=== PATIENT | female | born 1935 | race Caucasian/White ===

== ENCOUNTER 2021-06-18 08:02 | Outpatient (CLI) | payer MEDICARE, OTHER | END 2021-06-18 08:03 | disposition home or self-care (01) | LOC: CSHWCC 08:02 | PROVIDERS: ATTEND Nurse Practitioner Family | DX: L89.213 Pressure ulcer of right hip, stage 3 (principal); L89.893 Pressure ulcer of other site, stage 3; I87.2 Venous insufficiency (chronic) (peripheral); E46 Unspecified protein-calorie malnutrition; F03.90 Unspecified dementia, unspecified severity, without behavioral disturbance, psychotic disturbance, mood disturbance, and anxiety; I25.10 Atherosclerotic heart disease of native coronary artery without angina pectoris; I48.91 Unspecified atrial fibrillation; A41.9 Sepsis, unspecified organism; I95.9 Hypotension, unspecified; K21.9 Gastro-esophageal reflux disease without esophagitis; K80.43 Calculus of bile duct with acute cholecystitis with obstruction; M24.561 Contracture, right knee; M24.562 Contracture, left knee; M25.50 Pain in unspecified joint; M81.0 Age-related osteoporosis without current pathological fracture; N18.9 Chronic kidney disease, unspecified; R13.12 Dysphagia, oropharyngeal phase; R47.01 Aphasia; R62.7 Adult failure to thrive; Z74.01 Bed confinement status | CPT/HCPCS: 11043; 97605; 99204; G0463 ==

== ENCOUNTER 2021-09-08 08:25 | Outpatient (CLI) | payer MEDICARE, OTHER | END 2021-09-08 08:26 | disposition home or self-care (01) | LOC: CSHWCC 08:25 | PROVIDERS: ATTEND Nurse Practitioner Family | DX: L89.213 Pressure ulcer of right hip, stage 3 (principal); L89.894 Pressure ulcer of other site, stage 4; A41.9 Sepsis, unspecified organism; E46 Unspecified protein-calorie malnutrition; F03.90 Unspecified dementia, unspecified severity, without behavioral disturbance, psychotic disturbance, mood disturbance, and anxiety; I25.10 Atherosclerotic heart disease of native coronary artery without angina pectoris; I48.91 Unspecified atrial fibrillation; I87.2 Venous insufficiency (chronic) (peripheral); I95.9 Hypotension, unspecified; K21.9 Gastro-esophageal reflux disease without esophagitis; K80.43 Calculus of bile duct with acute cholecystitis with obstruction; M24.561 Contracture, right knee; M24.562 Contracture, left knee; M25.50 Pain in unspecified joint; M81.0 Age-related osteoporosis without current pathological fracture; N18.9 Chronic kidney disease, unspecified; R13.12 Dysphagia, oropharyngeal phase; R47.01 Aphasia; R62.7 Adult failure to thrive; Z74.01 Bed confinement status ==

== ENCOUNTER 2021-10-06 08:30 | Outpatient (CLI) | payer MEDICARE, OTHER | END 2021-10-06 08:31 | disposition home or self-care (01) | LOC: CSHWCC 08:30 | PROVIDERS: ATTEND Nurse Practitioner Family | DX: L89.894 Pressure ulcer of other site, stage 4 (principal); L89.213 Pressure ulcer of right hip, stage 3; I87.2 Venous insufficiency (chronic) (peripheral); A41.9 Sepsis, unspecified organism; R65.20 Severe sepsis without septic shock; N18.9 Chronic kidney disease, unspecified; K80.43 Calculus of bile duct with acute cholecystitis with obstruction; M81.0 Age-related osteoporosis without current pathological fracture; E46 Unspecified protein-calorie malnutrition; F03.90 Unspecified dementia, unspecified severity, without behavioral disturbance, psychotic disturbance, mood disturbance, and anxiety; I25.10 Atherosclerotic heart disease of native coronary artery without angina pectoris; I48.91 Unspecified atrial fibrillation; I95.9 Hypotension, unspecified; K21.9 Gastro-esophageal reflux disease without esophagitis; M24.561 Contracture, right knee; M24.562 Contracture, left knee; M25.50 Pain in unspecified joint; R13.12 Dysphagia, oropharyngeal phase; R47.01 Aphasia; R62.7 Adult failure to thrive; Z74.01 Bed confinement status ==

== ENCOUNTER 2021-10-20 08:38 | Outpatient (CLI) | payer MEDICARE, OTHER | END 2021-10-20 08:39 | disposition home or self-care (01) | LOC: CSHWCC 08:38 | PROVIDERS: ATTEND Nurse Practitioner Family | DX: L89.213 Pressure ulcer of right hip, stage 3 (principal); F03.90 Unspecified dementia, unspecified severity, without behavioral disturbance, psychotic disturbance, mood disturbance, and anxiety; A41.9 Sepsis, unspecified organism; E46 Unspecified protein-calorie malnutrition; I25.10 Atherosclerotic heart disease of native coronary artery without angina pectoris; I48.91 Unspecified atrial fibrillation; I87.2 Venous insufficiency (chronic) (peripheral); I95.9 Hypotension, unspecified; K21.9 Gastro-esophageal reflux disease without esophagitis; K80.43 Calculus of bile duct with acute cholecystitis with obstruction; M24.561 Contracture, right knee; M24.562 Contracture, left knee; M25.50 Pain in unspecified joint; M81.0 Age-related osteoporosis without current pathological fracture; N18.9 Chronic kidney disease, unspecified; R13.12 Dysphagia, oropharyngeal phase; R47.01 Aphasia; R62.7 Adult failure to thrive; Z74.01 Bed confinement status ==

== ENCOUNTER 2021-11-10 08:31 | Outpatient (CLI) | payer MEDICARE, OTHER | END 2021-11-10 08:32 | disposition home or self-care (01) | LOC: CSHWCC 08:31 | PROVIDERS: ATTEND Nurse Practitioner Family | DX: L89.213 Pressure ulcer of right hip, stage 3 (principal); A41.9 Sepsis, unspecified organism; E46 Unspecified protein-calorie malnutrition; F03.90 Unspecified dementia, unspecified severity, without behavioral disturbance, psychotic disturbance, mood disturbance, and anxiety; I25.10 Atherosclerotic heart disease of native coronary artery without angina pectoris; I48.91 Unspecified atrial fibrillation; I87.2 Venous insufficiency (chronic) (peripheral); K21.9 Gastro-esophageal reflux disease without esophagitis; K80.43 Calculus of bile duct with acute cholecystitis with obstruction; M24.561 Contracture, right knee; M24.562 Contracture, left knee; M25.50 Pain in unspecified joint; M81.0 Age-related osteoporosis without current pathological fracture; N18.9 Chronic kidney disease, unspecified; R13.12 Dysphagia, oropharyngeal phase; R47.01 Aphasia; R62.7 Adult failure to thrive; Z74.01 Bed confinement status ==